=== PATIENT | female | born 1955 | race Caucasian/White ===

== ENCOUNTER → 2020-08-31 | Outpatient (CLI) | payer OTHER ==
[~2020-08-31] MED LIST: CELEXA20 MG PO; DHA100 MG PO; GLUCOSAMINE CH1 EAC2 PO; PRILOSEC 20 MG20 MG PO; PRINIVIL20 MG PO; VENTOLIN HFA 1818 GM PO; VITAMIN D3100 MCG PO; VITAMIN D31000 UNIT PO
== END ==
LOC: LAB 12:20
PROVIDERS: ATTEND Ophthalmology
DX: Z01.812 Encounter for preprocedural laboratory examination (principal); Z20.822 Contact with and (suspected) exposure to COVID-19

== ENCOUNTER 2020-09-03 06:27 | Day surgery (SDC) | payer OTHER ==
[~2020-09-03] VITALS: Ht 160 cm; Wt 105.2 kg
--- NOTE | ~2020-09-03 | O ---
[facility] [place] [address] OPERATIVE REPORT Name: CAL OSMAN Room #: 150-5 [facility]#: [id number] Admission: 09/03/20 Attend Phys: Janes Lin MD Discharge: Date of : 51 Report #: [id number] THIS REPORT FOR: cc: LIAM VALDES MD, JESSE MD White,Janes Rivera MD ~ DATE OF SERVICE: 09/03/2020 SURGEON: Janes Lin MD INTERVENTIONAL TECH: None. PREOPERATIVE DIAGNOSIS: Bilateral upper lid dermatochalasia with superior visual field defect. POSTOPERATIVE DIAGNOSIS: Bilateral upper lid dermatochalasia with superior visual field defect. OPERATION PERFORMED: Bilateral upper lid functional blepharoplasty. ANESTHESIA: Local with IV sedation. COMPLICATIONS: None. 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 Visual field testing demonstrates dense superior visual defects. Retesting with the upper lid elevated shows an improvement in visual field loss of over 30% and in excess of 12 degrees. The current procedures are undertaken in order to improve the patient's visual function. Informed consent was obtained to include but not limited to the loss of vision, bleeding, infection, scarring, failure to improve the problem and need for further surgery. DESCRIPTION OF OPERATION: The patient was taken to the operating room, where 2% Xylocaine with epinephrine mixed with equal parts of 0.75% Marcaine with Wydase was administered transcutaneously to each upper lid. The patient was then prepped and draped in the usual sterile fashion and a skin-marking pen was then utilized to outline an upper lid crease that was symmetrical on each side. Graefe forceps were then used to quantitate the redundant upper lid skin and it was similarly outlined. The incisions were then made with Micheline scissors and a skin-muscle flap removed from each side with high-temp cautery. Hemostasis was achieved with the monopolar cautery as it was throughout the case. The orbital septum was then identified and the central and medial fat pads were [address] [address] OPERATIVE REPORT Name: CAL OSMAN Rabia Room #: 150-5 [facility].#: [id number] Admission: 09/03/20 Attend Phys: Janes Lin MD Discharge: Date of : 51 Report #: [id number] inspected. The redundant soft tissue was then sculpted with the monopolar cautery. The upper lid crease was then reformed with tightening of the pretarsal orbicularis muscle. The upper lid crease was then further reformed with multiple interrupted 6-0 chromic sutures. The skin was then closed with a running 6-0 plain gut suture. The wound was then cleaned and dressed with ophthalmic antibiotic ointment and a nonstick dressing. The patient was transported to the recovery area, where cold compresses were applied, having tolerated the procedure well with no anesthetic or operative complications being noted. By: [id number] Janes Lin MD /nt
[2020-09-03 07:32] VITALS: BP 133/67
== END 2020-09-03 10:02 | disposition home or self-care (01) ==
LOC: OR 06:27 → TBA 06:28 → OR 09:52
PROVIDERS: ATTEND Ophthalmology
DX: H02.834 Dermatochalasis of left upper eyelid (principal); H02.831 Dermatochalasis of right upper eyelid; H53.462 Homonymous bilateral field defects, left side; H53.461 Homonymous bilateral field defects, right side; I10 Essential (primary) hypertension; J45.909 Unspecified asthma, uncomplicated; F32.9 Major depressive disorder, single episode, unspecified; F41.9 Anxiety disorder, unspecified; K21.9 Gastro-esophageal reflux disease without esophagitis; Z85.828 Personal history of other malignant neoplasm of skin; Z98.890 Other specified postprocedural states; Z79.899 Other long term (current) drug therapy; Z90.710 Acquired absence of both cervix and uterus; Z88.2 Allergy status to sulfonamides; Z88.8 Allergy status to other drugs, medicaments and biological substances
CPT/HCPCS: 50010; 50101; 50386; 50398; 51636; 56531; 62110; 62850; 70005